=== PATIENT | female | born 1960 | race Caucasian/White ===

== ENCOUNTER 2016-12-05 14:21 | Inpatient (IN) | payer OTHER ==
[~2016-12-05] VITALS: Ht 170.2 cm; Wt 70.3 kg
--- NOTE | 2016-12-06 00:15 | NUR ---
Pre-Admission Note: Patient assessed in intake office at 00:15 on 12/06/2016. Patient is ambulatory with steady gait, stable, A&OX4, speech is clear. Patient states that she is here to safely detox from Xanax, which she has been ingesting 5-20mg on a daily basis for 3 years. Patient states that she has taken 11mg of Xanax throughout the course of the day, while traveling to [place] from [place]. Patient denies any withdrawal symptoms at this time. VS: 144/77, 83, 98.2, 18, 96%. Patient denies pain at this time. Patient reports NKDA/NKFA. Patient instructed on unit protocol of vitals Q4H and COWS/CIWA assessments. Patient verbalized understanding and agreement. Patient also instructed on policy regarding destruction of any controlled substances/prescriptions brought to facility, and handling of all medications. Patient verbalized understanding and agreement. Will complete admission assessment when patient is brought up to unit.
[2016-12-06 00:20] VITALS: BP 144/77
--- NOTE | 2016-12-06 00:58 | NUR ---
ADMISSION NOTE: NEW ADMISSION IS A 56 YO FEMALE ON THE [facility] AT 00:58 ON 12/06/16. UDS IS RESULTED POSITIVE FOR BENZODIAZEPINES, WHICH IS CONSISTENT WITH HISTORY PROVIDED BY PT. VS UPON ADMISSION: 144/77, 83, 98.2, 18, 96% SPO2 ON RA. CIWA IS 1: PT REPORTS ANXIETY. HEIGHT IS 57 AND WEIGHT BY BED SCALE IS 155 LBS. PT REPORTS NKDA/NKFA. PT REPORTS PCP IS DR KOCH IN [place], [place]. PT ADMITTED UNDER THE CARE OF DR CATALAN. PT REPORTS THE FOLLOWING SUBSTANCE USE: XANAX: PT REPORTS TAKING 5-20MG DAILY. PATIENT REPORTS TAKING XANAX FOR 40 YEARS, AND USING AT THIS RATE FOR 3 YEARS. LAST USE WAS 11MG THROUGHOUT THE DAY SHE TRAVELED TO [place] FROM [place], 1-2MG AT A TIME. 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 PT REPORTS SMOKING ONE PACK CIGARETTES WEEKLY FOR 2 YEARS. WRITTEN SMOKING CESSATION EDUCATION PROVIDED. PT VERBALIZES UNDERSTANDING. PT DENIES ANY DETOX/TREATMENT ADMISSIONS IN THE PAST. PT REPORTS PMHX OF DYSLIPIDEMIA (2011), BRONCHOSPASM, JAW FX (1993), LEFT SHOULDER FX (15YO), LEFT WRIST FX. PT REPORTS TAKING HOME MEDICATION: PRAVASTATIN 20MG DAILY, XANAX (SEE ABOVE), FLUTICASONE, VENTOLIN HFA. PT IS AMBULATORY WITH STEADY GAIT. A&OX4 AND HYPER-VERBAL. PT SKIN IS INTACT. PT DENIES CURRENT OR HX OF SI/HI. LUNGS ARE CTA THROUGHOUT, RESPIRATIONS ARE EVEN AND UNLABORED. PT DENIES COUGH/SOB. HEART SOUNDS REGULAR. BOWEL SOUNDS ACTIVE IN ALL QUADRANTS; LAST BM ON 12/05/16. ABDOMEN IS SOFT, NON-DISTENDED, NON-TENDER.
[2016-12-06] MEDS ORDERED: THIAMINE HCL 200 MG/2 ML VIAL IM ONE (02:15)
[2016-12-06] MEDS ORDERED: DICYCLOMINE HCL 20 MG TABLET PO PRN (02:15)
[2016-12-06] MEDS ORDERED: DIAZEPAM 5 MG TABLET PO PRN (02:15)
[2016-12-06] MEDS ORDERED: MAGNESIUM HYDROXIDE 30 ML LIQUID UDC PO PRN (02:15)
[2016-12-06] MEDS ORDERED: diphenhydrAMINE 50 MG CAPSULE PO PRN (02:15)
[2016-12-06] MEDS ORDERED: ONDANSETRON ODT 4 MG TAB.RAPDIS SL PRN (02:15)
[2016-12-06] MEDS ORDERED: LOPERAMIDE HCL 2 MG CAPSULE PO PRN ×2 (02:15)
[2016-12-06] MEDS ORDERED: MIRALAX 17 GM POWD.PACK PO PRN (02:15)
[2016-12-06] MEDS ORDERED: ONDANSETRON 4 MG/2 ML VIAL IM PRN (02:15)
[2016-12-06] MEDS ORDERED: DIAZEPAM 10 MG TABLET PO PRN ×2 (02:15)
[2016-12-06] MEDS ORDERED: IBUPROFEN 400 MG TABLET PO PRN (02:15)
[2016-12-06] MEDS ORDERED: MAG HYDROX/AL HYDROX/SIMETH 30 ML LIQUID UDC PO PRN (02:15)
[2016-12-06] MEDS ORDERED: LORAZEPAM 2 MG/1 ML VIAL IM PRN (02:15)
[2016-12-06] MEDS ORDERED: ACETAMINOPHEN 325 MG TABLET PO PRN (02:15)
[2016-12-06 02:38] LABS: *URINE HCG, QUAL NEGATIVE (NEGATIVE)
[2016-12-06 02:42] LABS: *AMPHETAMINE, URINE NEGATIVE (NEGATIVE); *BARBITURATE, URINE NEGATIVE (NEGATIVE); *CANNABINOID, URINE NEGATIVE (NEGATIVE); *COCCAINE, URINE NEGATIVE (NEGATIVE); *OPIATE, URINE NEGATIVE (NEGATIVE); *PHENCYCLIDINE SCREEN,URINE NEGATIVE (NEGATIVE)
[2016-12-06 04:00] VITALS: BP 106/51
--- NOTE | 2016-12-06 04:00 | NUR ---
CIWA Deferred: CIWA assessment is deferred for sleep. V/S stable. No acute distress noted. All safety precautions are in place. Will continue to monitor. Addendum: 12/06/16 at 0522 by KENIA SEE RN Amended: Links added.
[2016-12-06] MEDS ORDERED: ALBU1.25 IH (04:34)
[2016-12-06] MEDS ORDERED: PRAV20TA4 PO (04:34)
[2016-12-06] MEDS ORDERED: ALPR1TAB7 PO (04:34)
[2016-12-06] MEDS ORDERED: FLUT16SP NS (04:34)
[2016-12-06] MEDS ORDERED: ALPR0.5T8 PO (04:34)
[2016-12-06] MEDS ORDERED: NAPR220C46 PO (04:35)
[2016-12-06] MEDS ORDERED: ASPI1TAB PO (04:35)
[2016-12-06] MEDS ORDERED: RESCUE (04:35)
[2016-12-06] MEDS ORDERED: KAVA KAVA (04:35)
[2016-12-06] MEDS ORDERED: SODI45SP5 NS (04:35)
--- NOTE | 2016-12-06 06:59 | NUR ---
End of Shift Note: Pt is a 56 yo female admitted to [facility] last night for medically-supervised withdrawal from benzodiazepines. Pt reports PMHx: dyslipidemia, bronchospasm, anxiety. Pt reports NKDA/NKFA and is on a regular/vegetarian diet. Pt reports using 5-20mg Xanax daily for 3 years. Last CIWA=1 at 03:00 and no PRN medications were necessary this shift. V/S stable throughout shift. Total fluid intake this shift: 473 ml; output: urine x 1 and BM x 0. Pt currently in bed and slept 4 hours this shift. Pt endorsed to day shift nurse.
--- NOTE | 2016-12-06 07:15 | NUR ---
Start Of Shift Pt is a 56 y/o female admitted to [facility] last night for medically-supervised withdrawal from benzodiazepines. Pt reports PMHx: dyslipidemia, bronchospasm, anxiety. Pt is full code Vegan diet continues on fall and seizure precautions. Pt is not currently on a taper but has PRN medications in case of withdrawals. Pt did not receive any PRN medications last night. Encouraged fluids to facilitate with detox. Pt A&Ox4 with even unlabored respirations at 17.Pts Last CIWA=1 at 20:00. Pt slept a total of 4 hours at night. All safety measures in place call light within reach will continue to monitor and provide care.
[2016-12-06] MEDS ORDERED: [UNRECOGNIZED DRUG - OTHER] (07:19)
[2016-12-06 08:00] VITALS: BP 108/64
[2016-12-06 08:30] LABS: BASOPHILS % (AUTO) 0.5 % (0.0-2.0); EOSINOPHILS # (AUTO) 0.1 K/uL (0.0-0.7); EOSINOPHILS % (AUTO) 0.7 % (0.0-7.0); HEMOGLOBIN 13.5 G/DL (12.0-16.0); LYMPHOCYTES # (AUTO) 3.5 K/uL (20.0-40.0); LYMPHOCYTES % (AUTO) 42.1 % (20.5-51.5); MEAN CORPUSCULAR HGB CONC 34 g/dL (32.0-37.0); MEAN CORPUSCULAR VOLUME 85.8 FL (81.0-99.0); MONOCYTES # (AUTO) 0.6 K/uL (2.0-10.0); MONOCYTES % (AUTO) 7.1 % (0.0-11.0); NEUTROPHILS # (AUTO) 4.2 K/uL (1.8-8.9); NEUTROPHILS % (AUTO) 49.6 % (38.5-71.5); PLATELET COUNT (AUTO) 297 K/UL (150-450); RED BLOOD CELL COUNT(AUTO) 4.67 MIL/UL (4.2-5.4); RED CELL DISTRIBUTION WIDTH 12.1 % (11.5-14.5); WHITE BLOOD COUNT (AUTO) 8.4 K/UL (4.0-11.2)
[2016-12-06 08:48] LABS: ALANINE AMINOTRANSFERASE 13 U/L (14-59); ALBUMIN 3.9 g/dL (3.4-5.0); ALKALINE PHOSPHATASE 88 U/L (50-136); AMYLASE 50 U/L (25-115); ASPARTATE AMINOTRANSFERASE 22 U/L (15-37); BILIRUBIN,TOTAL 0.4 mg/dL (0.2-1.0); CALCIUM 8.7 mg/dL (8.5-10.1); CARBON DIOXIDE 29 mmol/L (21-32); CHLORIDE 105 mmol/L (98-107); CREATININE 0.9 mg/dL (0.6-1.3); GFR 65 mL/min (>60); GLUCOSE 119 mg/dL (74-106); LIPASE 149 U/L (73-393); MAGNESIUM 2.2 mg/dL (1.8-2.4); POTASSIUM 3.7 mmol/L (3.5-5.1); SODIUM SERUM 142 mmol/L (136-145); TOTAL PROTEIN, SERUM 7.5 g/dL (6.4-8.2); UREA NITROGEN, BLOOD 11 mg/dL (7-18)
[2016-12-06 08:56] LABS: THYROID STIMULATING HORMONE 1.495 mIU/mL (0.358-3.740)
[2016-12-06 08:59] LABS: ETHANOL < 3 MG/DL (0-0)
[2016-12-06] MEDS ORDERED: PNEUMOCOCCAL 23-VAL P-SAC VAC 0.5 ML VIAL IM ONE (09:00)
[2016-12-06] MEDS ORDERED: THIAMINE HCL 100 MG TABLET PO SCH (09:00)
[2016-12-06 09:40] LABS: HIV-1 p24 ANTIGEN NON REACTIVE (NONREACTIVE); HIV-1/2 ANTIBODY NON REACTIVE (NONREACTIVE)
[2016-12-06] MEDS: FOLIC ACID 1 MG TABLET PO SCH (09:52)
[2016-12-06] MEDS: MULTIVITAMINS,THERAPEUTIC TABLET PO SCH (09:52)
[2016-12-06 12:00] VITALS: BP 115/73
[2016-12-06] MEDS ORDERED: FLUTICASONE PROP NASAL SPRAY 16 GM BOTTLE NS PRN (12:45)
[2016-12-06] MEDS ORDERED: ASPIRIN/ACETAMINOPHEN/CAFFEINE TABLET PO PRN (12:45)
[2016-12-06] MEDS: GABAPENTIN 300 MG CAPSULE PO SCH ×2 (15:00→21:00)
--- NOTE | 2016-12-06 15:22 | NUR ---
Refused medication Pt refused his scheduled gabapentin 300mg in the evening. Pt educated about the importance of medication compliance and the consequences of not taking the medications, pt verbalized understanding but still refused the medication. MD contacted and notified. all needs met will continue to monitor.
[2016-12-06 16:00] VITALS: BP 123/73
[2016-12-06] MEDS: NICOTINE 7 MG/24HR PATCH TD SCH (16:26)
--- NOTE | 2016-12-06 19:00 | NUR ---
Start of Shift Patient Received. Patient is in bed, awake, alert and verbally responsive. Breathing even and non labored. No signs of pain or discomfort noted. Patient is a 56 year old female, admitted on 12/06/16 for Benzo Dependence, under the care of Dr. Bustamante. PRN Medications available for increased signs and symptoms of withdrawal. Patient verbalizes no known allergies, wishes to be full code, following a regular diet, skin noted intact, placed on fall and seizure precautions. Past medical history verbalized as dyslipidemia, Bronchospasm, anxiety, Jaw fracture, Left Shoulder fracture, and Left wrist fracture. Per endorsement, patient is not noted with increased signs and symptoms. Last CIWA noted to be 1 at 1600. PRN Excedrin administered and noted effective. Nicotine patch placed on Right Arm. All needs attended to promptly. Will contiue plan of care as ordered.
[2016-12-06] MEDS ORDERED: NORMAL SALINE NASAL 45 ML BOTTLE NS PRN (19:15)
--- NOTE | 2016-12-06 19:31 | NUR ---
End Of Shift Pt is a 56 y/o female admitted to [facility] last night for medically-supervised withdrawal from benzodiazepines. Pt is full code Vegan diet continues on fall and seizure precautions. Pt is not currently on a taper but has PRN medications in case of withdrawals. Treatment plan tolerated well by the patient. Upon assessment patient did not experience withdrawal symptoms with her last CIWA score being a 1 @1600. Pt was given PRN Excedrin 1 tab, and Nicotine TD 7mg. Patient encouraged adequate PO fluid intake as tolerated. Detox medication effective at reducing withdrawal symptoms. Patient encouraged to attend group therapies/sessions to learn new coping skills to recent relapse, noted attending and participating in groups and activities, patient denies SI/HI. Pt ate all of her meals his total fluid intake was 2480 with 3 void and no bowel movement, Safety measures in place. Call light kept within reach. Patient endorsed to night shift supervisor nurse, all pertinent information discussed with night shift supervisor nurse.
[2016-12-06 20:58] VITALS: BP 110/70
[2016-12-06] MEDS: ATORVASTATIN 20 MG TABLET PO SCH (21:00)
--- NOTE | 2016-12-06 21:00 | NUR ---
PRN Medication Administration Patient verbalizing inability of falling asleep. PRN Benadryl given with routine medicaitons. Will continue to monitor.
[2016-12-06] MEDS ORDERED: ATORVASTATIN 20 MG TABLET ONE (21:05)
[2016-12-07] VITALS (7 sets, daily range): BP systolic 96–160; BP diastolic 51–84
--- NOTE | 2016-12-07 07:13 | NUR ---
End of Shift Patient is in bed sleeping. Breathing even and non labored. No signs of pain or discomfort noted. Patient is a 56 year old female, admitted on 12/06/16 for Benzo Dependence, under the care of Dr. Bustamante. PRN Medications available for increased signs and symptoms of withdrawal. Patient verbalizes no known allergies, full code, regular diet, skin noted intact, placed on fall and seizure precautions. Past medical history verbalized as dyslipidemia, Bronchospasm, anxiety, Jaw fracture, Left Shoulder fracture, and Left wrist fracture. Patient was given PRN Benadryl for inability of falling asleep. PRN Medication noted to be effective patient noted to sleep 7 hours. All needs attended to promptly. Will endorse to continue plan of care as ordered.
--- NOTE | 2016-12-07 07:36 | NUR ---
START OF SHIFT NOTE: Received report from mini shifter nurse. Pt is a 56 y/o female admitted to [facility] 12-05-16 for benzodiazepine dependence. Pt is currently on prn's only. Pt is awake, alert and oriented X4. Color good, skin warm and dry. Respirations even and unlabored. Pt currently resting in bed. Safety precautions observed. Call light within reach. Will continue to monitor.
[2016-12-07] MEDS ORDERED: DIAZEPAM 10 MG TABLET PO SCH (09:00)
[2016-12-07] MEDS ORDERED: TUBERCULIN,PURIF.PROT.DERIV. 5 TU/0.1 ML TEST ID ONE (09:00)
[2016-12-07] MEDS ORDERED: 5 DAY TAPER VALIUM-SERENITY PROTOCOL PO PRN (09:00)
--- NOTE | 2016-12-07 09:00 | NUR ---
VSS CIWA [address] held [address] Bustamante.
[2016-12-07] MEDS: GABAPENTIN 300 MG CAPSULE PO SCH ×3 (09:13→21:00)
[2016-12-07] MEDS: FOLIC ACID 1 MG TABLET PO SCH (09:13)
[2016-12-07] MEDS: NICOTINE 7 MG/24HR PATCH TD SCH (09:13)
[2016-12-07] MEDS: MULTIVITAMINS,THERAPEUTIC TABLET PO SCH (09:13)
[2016-12-07] MEDS: HYDROXYZINE PAMOATE 25 MG CAPSULE PO PRN (12:37)
--- NOTE | 2016-12-07 12:43 | NUR ---
VSS Pt c/o anxiety. Vistaril 50mg po prn given
[2016-12-07 14:02] LABS: *AMPHETAMINE, URINE NEGATIVE (NEGATIVE); *BARBITURATE, URINE NEGATIVE (NEGATIVE); *CANNABINOID, URINE NEGATIVE (NEGATIVE); *COCCAINE, URINE NEGATIVE (NEGATIVE); *OPIATE, URINE NEGATIVE (NEGATIVE); *PHENCYCLIDINE SCREEN,URINE NEGATIVE (NEGATIVE)
--- NOTE | 2016-12-07 14:30 | NUR ---
Pt states feels less anxious after Vistaril prn.
--- NOTE | 2016-12-07 17:40 | NUR ---
Clonidine 0.1mg po prn given for B/P of 160/88
[2016-12-07] MEDS: CLONIDINE HCL 0.1 MG TABLET PO PRN (17:41)
--- NOTE | 2016-12-07 18:44 | NUR ---
END OF SHIFT NOTE: Report given to shift production supervisor nurse . Pt is a 56 y/o female admitted to [facility] 12-05-16 for benzodiazepine dependence. Pt is currently on prn's only and to be discharged in AM. Pt is awake, alert and oriented X4. Color good, skin warm and dry. Respirations even and unlabored. Vital signs have remained stable throughout shift. Last CIWA 1 @ 1700. Vistaril 50mg po prn given @ 1245. Clonidine 0.1mg po prn given for B/P of 160/88. Pt currently resting in bed. Safety precautions observed. Call light within reach.
--- NOTE | 2016-12-07 19:10 | NUR ---
Start of Shift Patient Received. Patient is in bed, awake, alert and verbally responsive. Breathing even and non labored. No signs of pain or discomfort noted. Patient is a 56 year old female, admitted on 12/06/16 for Benzo Dependence, under the care of Dr. Bustamante. PRN Medications available for increased signs and symptoms of withdrawal. Patient verbalizes no known allergies, wishes to be full code, following a regular diet, skin noted intact, placed on fall and seizure precautions. Past medical history verbalized as dyslipidemia, Bronchospasm, anxiety, Jaw fracture, Left Shoulder fracture, and Left wrist fracture. Per endorsement, patient is set for discharge tomorrow 12/08/16 to [facility]. Patient was given PRN Clonidine and Vistaril. Will reassess patients blood pressure for effectiveness of Clonidine. All needs attended to promptly. Will continue plan of care as ordered.
--- NOTE | 2016-12-07 19:30 | NUR ---
PRN Mediation Reassessment Patients vital signs rendered and noted as 125/54 and pulse of 75. patient is resting calmly in bed reading a book.
[2016-12-07] MEDS: ATORVASTATIN 20 MG TABLET PO SCH (21:00)
--- NOTE | 2016-12-07 21:00 | NUR ---
PRN Medication Administration Patient verbalizing pain due to head ache of 5/10. PRN Motrin administered with routine mediations. Will continue to monitor.
[2016-12-08 00:10] VITALS: BP 97/56
[2016-12-08 04:42] VITALS: BP 106/55
--- NOTE | 2016-12-08 07:11 | NUR ---
End of Shift Patient is in bed sleeping. Breathing even and non labored. No signs of pain or discomfort noted. Patient continues on plan of care as ordered per MD. Patient is set for discharge today 12/08/16 to [facility]. Patient was given PRN Motrin with 2100 medications for pain due to a headache. PRN Medication noted to be effective. Patient noted to sleep a total of 8 hours throughout the shift. All needs attended to promptly. Will endorse to continue plan of care as ordered.
--- NOTE | 2016-12-08 07:30 | NUR ---
start of shift note: received pt from overnight caregiver nurse, pt is in stable condition at this time no s/s of pain or discomfort. [facility]ax withdrawal/dependence. pt is set to discharge today will assist pt in discharging and will continue to monitor pt for any changes.
[2016-12-08] MEDS ORDERED: DIAZEPAM 10 MG TABLET PO SCH (09:00)
[2016-12-08] MEDS: HYDROXYZINE PAMOATE 25 MG CAPSULE PO PRN (09:23)
[2016-12-08] MEDS: GABAPENTIN 300 MG CAPSULE PO SCH (09:23)
[2016-12-08 09:24] VITALS: BP 104/62
[2016-12-08] MEDS: MULTIVITAMINS,THERAPEUTIC TABLET PO SCH (09:24)
[2016-12-08] MEDS: FOLIC ACID 1 MG TABLET PO SCH (09:24)
[2016-12-08] MEDS: CLONIDINE HCL 0.1 MG TABLET PO PRN (09:24)
[2016-12-08] MEDS: NICOTINE 7 MG/24HR PATCH TD SCH (09:25)
[2016-12-08] MEDS ORDERED: HYDR-3895 PO (09:31)
[2016-12-08] MEDS ORDERED: NICO1PAT46 TD (09:31)
[2016-12-08] MEDS ORDERED: Gabapentin PO (09:31)
--- NOTE | 2016-12-08 10:00 | NUR ---
discharge note: pt left the unit in stable condition no s/s of withdrawal. pt appeared and verbalized that she was very anxious about going to treatment. pt teaching was administered and pt verbalized understanding. pts own home medications were returned. pt's V/S WNL. pt will be transferred to [facility] via private car
[2016-12-09 05:06] LABS: HCV AB <0.1 s/co ratio (0.0-0.9); HEPATITIS B CORE AB, IgM Negative (Negative); HEPATITIS B SURFACE AG Negative (Negative)
[2016-12-09] MEDS ORDERED: DIAZEPAM 5 MG TABLET PO SCH (09:00)
[2016-12-10] MEDS ORDERED: DIAZEPAM 5 MG TABLET PO SCH (09:00)
[2016-12-11] MEDS ORDERED: DIAZEPAM 5 MG TABLET PO SCH (09:00)
== END 2016-12-08 10:00 | disposition other institution (70) | DRG 895 ==
LOC: SRC 23:12
PROVIDERS: ADMIT Internal Medicine; ATTEND Internal Medicine
PROC: HZ2ZZZZ Detoxification Services for Substance Abuse Treatment (ICD-10-PCS; principal; 2016-12-05)
PROC: HZ41ZZZ Group Counseling for Substance Abuse Treatment, Behavioral (ICD-10-PCS; 2016-12-06)
DX: F13.20 Sedative, hypnotic or anxiolytic dependence, uncomplicated (principal); Z81.8 Family history of other mental and behavioral disorders; F41.0 Panic disorder [episodic paroxysmal anxiety]; E78.5 Hyperlipidemia, unspecified; Z81.1 Family history of alcohol abuse and dependence; Z81.4 Family history of other substance abuse and dependence; F17.210 Nicotine dependence, cigarettes, uncomplicated; F41.9 Anxiety disorder, unspecified
CPT/HCPCS: 36415; 70030-TC; 71010; 80307; 80346; 83690; 83735; 84443; 84703; 85025; 86592; 86705; 86803; 87340; 87806; 90732; A9150; G6040-TC; J3535; Q0163